=== PATIENT | male | born 1975 | race Hispanic/Latino ===

== ENCOUNTER → 2017-09-23 | Day surgery (SDC) | payer OTHER ==
[~2017-09-23] VITALS: Ht 160 cm; Wt 74.8 kg
[~2017-09-23] MED LIST: FAMOTIDINE20 M1 PO; PANTOPRAZOLE SO40 MG PO; PHRENILIN1 TAB PO
[2017-09-23 09:57] VITALS: BP 116/78
== END | disposition home or self-care (01) | DRG 392 ==
LOC: ENDO 07:14 → ORM 09:00 → ENDO 09:00 → ORM 09:30
PROVIDERS: ATTEND Internal Medicine Gastroenterology
PROC: 0DB48ZX Excision of Esophagogastric Junction, Via Natural or Artificial Opening Endoscopic, Diagnostic (ICD-10-PCS; principal; 2017-09-23)
PROC: 0DB58ZX Excision of Esophagus, Via Natural or Artificial Opening Endoscopic, Diagnostic (ICD-10-PCS; 2017-09-23)
PROC: 0D758ZZ Dilation of Esophagus, Via Natural or Artificial Opening Endoscopic (ICD-10-PCS; 2017-09-23)
DX: R10.13 Epigastric pain (principal); R13.10 Dysphagia, unspecified; K22.8 Other specified diseases of esophagus; K21.0 Gastro-esophageal reflux disease with esophagitis; R14.0 Abdominal distension (gaseous); F45.8 Other somatoform disorders; K29.70 Gastritis, unspecified, without bleeding; K44.9 Diaphragmatic hernia without obstruction or gangrene

== ENCOUNTER 2018-11-12 14:01 | Emergency (ER) | payer SELFPAY ==
[~2018-11-12] VITALS: Ht 160 cm; Wt 77.2 kg
[2018-11-12 14:05] VITALS: BP 122/82
[2018-11-12] MEDS ORDERED: MOTRIN200 MG PO (14:26)
[2018-11-12] MEDS ORDERED: TAM75CAP PO (15:29)
== END 2018-11-12 16:14 | disposition home or self-care (01) | DRG 195 ==
LOC: ED 14:01
DX: J10.1 Influenza due to other identified influenza virus with other respiratory manifestations (principal)